=== PATIENT | female | born 1965 | race Two or more races ===

== ENCOUNTER 2019-03-15 19:09 | Emergency (ER) | payer SELFPAY ==
[2019-03-15 20:43] LABS: % BASOPHILS 1.1 % (0.0-2.0); % EOSINOPHILS 1.1 % (0.0-5.0); % LYMPHOCYTES 30.1 % (20.0-50.0); % MONOCYTES 5.3 % (2.0-10.0); % NEUTROPHILS 62.4 % (40.0-80.0); BASOPHILE ABSOLUTE 0.1 Th/cumm (0-0.2); EOSINOPHILE ABSOLUTE 0.1 Th/cmm (0.1-0.4); HEMATOCRIT 35.3 % (41.0-60); HEMOGLOBIN 11.7 gm/dL (12-16); LYMPHOCYTE ABSOLUTE 2.9 Th/cmm (1.5-3.0); MEAN CELL VOLUME 81.2 fl (81-100); MEAN CORPUSCULAR HEMOGLOBIN 26.8 pg (27.0-31.0); MEAN CORPUSCULAR HGB CONC 33.1 pg (28.0-36.0); MEAN PLATELET VOLUME 8.3 fl; MONOCYTE ABSOLUTE 0.5 Th/cmm (0.3-1.0); NEUTROPHILE ABSOLUTE 6.2 Th/cmm (1.8-8.0); PLATELET COUNT 362 Th/cmm (150-400); RED BLOOD COUNT 4.35 Mil/cmm (3.80-5.10); WHITE BLOOD COUNT 9.8 Th/cmm (4.8-10.8)
[2019-03-15 21:16] LABS: ALB/GLOB RATIO 1.1 (1.0-1.8); ALBUMIN 3.8 gm/dL (3.7-5.3); ALKALINE PHOSPHATASE 106 U/L (34-104); ANION GAP 12.5 (7.0-16.0); BILIRUBIN,TOTAL 0.3 mg/dL (0.3-1.0); BUN - UREA NITROGEN 9 mg/dL (7-25); CARBON DIOXIDE 24.1 mEq/L (21.0-31.0); CHLORIDE 104 mEq/L (98-107); CREATININE - SERUM 0.7 mg/dL (0.6-1.2); GFR AFRICAN-AMERICAN > 60.0 ml/min (>90); GFR NON AFRICAN-AMERICAN > 60.0 ml/min; GLUCOSE 112 mg/dL (70-105); POTASSIUM SERUM 3.6 mEq/L (3.5-5.1); SGOT 12 U/L (13-39); SGPT/ALT 23 U/L (7-52); SODIUM SERUM 137 mEq/L (136-145); TOTAL PROTEIN,SERUM 7.4 gm/dL (6.0-8.3)
[2019-03-15 21:51] LABS: URINE SOURCE CLEAN C
[2019-03-15 21:53] LABS: URINE BILIRUBIN NEGATIVE (NEGATIVE); URINE BLOOD NEGATIVE (NEGATIVE); URINE GLUCOSE (UA) NEGATIVE (NEGATIVE); URINE KETONE NEGATIVE (NEGATIVE); URINE LEUKOCYTE ESTERASE TRACE (NEGATIVE); URINE MICROSCOPIC INDICATED? YES; URINE NITRATE NEGATIVE (NEGATIVE); URINE PH 5.5 (4.6 - 8.0); URINE PROTEIN NEGATIVE (NEGATIVE); URINE UROBILINOGEN 0.2 E.U./dL (0.2 - 1.0)
[2019-03-15 22:09] LABS: URINE COLOR STRAW
[2019-03-15 22:10] LABS: URINE CLARITY SLIGHT HAZY (CLEAR)
[2019-03-15 22:13] LABS: URINE EPITHELIAL CELLS MODERATE /lpf (FEW); URINE RBC NONE SEEN /hpf (0-5); URINE WBC 0-2 /hpf (0-5)
[2019-03-15 22:14] LABS: URINE BACTERIA OCCASIONAL /hpf (NONE SEEN)
--- NOTE | 2019-03-16 12:25 | Diagnostic Imaging Report ---
Chest x-ray single view History: Pain Comparison: None The heart size is normal. No focal pulmonary parenchymal processes. No hilar or mediastinal abnormalities. Impression: No acute abnormalities
--- NOTE | 2019-03-16 12:25 | Diagnostic Imaging Report ---
EXAM: Left shoulder joint HISTORY: Pain COMPARISON: None FINDINGS: Multiple views of left shoulder joint reviewed. The study demonstrates no evidence of fracture or dislocation. There is no evidence of subluxation. The acromion clinically joint is intact. The head of right humerus is well within the glenoid fossa. IMPRESSION: Normal examination of the left shoulder joint.
--- NOTE | 2019-03-29 19:29 | ED Physician Chart ---
ED Chief Complaint/HPI - Patient Information Date Seen:: 03/15/19 Time Seen:: 20:00 Chief Complaint:: lt shoulder pain History of Present Illness:: 53 yr old female with chronic lt shoulder pain for one month no trauma no fever no numbness weakness or cp Allergies:: Allergies Allergy/AdvReac Type Severity Reaction Status Date / Time No Known Allergies Allergy Verified 03/15/19 21:01 ED Review of Systems - Review of Systems General/Constitutional: No fever, No chills, No weight loss, No weakness, No diaphoresis, No edema, No loss of appetite Skin: No skin lesions, No rash, No bruising Head: No headache, No light-headedness Eyes: No loss of vision, No pain, No diplopia ENT: No earache, No nasal drainage, No sore throat, No tinnitus Neck: No neck pain, No swelling, No thyromegaly, No stiffness, No mass noted Cardio Vascular: No chest pain, No palpitations, No PND, No orthopnea, No edema Pulmonary: No SOB, No cough, No sputum, No wheezing GI: No nausea, No vomiting, No diarrhea, No pain, No melena, No hematochezia, No constipation, No hematemesis G/U: No dysuria, No frequency, No hematuria Musculoskeletal: Bone or joint pain Endocrine: No polyuria, No polydipsia Psychiatric: No prior psych history, No depression, No anxiety, No suicidal ideation Hematopoietic: No bruising, No lymphadenopathy Allergic/Immuno: No urticaria, No angioedema Neurological: No syncope, No focal symptoms, No weakness, No paresthesia, No headache, No seizure, No dizziness, No confusion, No vertigo ED Past Medical History - Past Medical History Past Medical History: HTN, DM, Dyslipidemia, Other (codey) Surgical History: Appendectomy, Cholecystectomy, Family Medical History - Family Member Mother History Unknown: Yes ED Physical Exam - Physical Examination Other Extremities comments:: lt shoulder mild ant shoulder tenderness with painful rom ED Labs/Radiology/EKG Results - Lab Results Results: Laboratory Tests 03/15/19 03/15/19 03/15/19 20:30 20:30 20:30 WBC 9.8 RBC 4.35 Hgb 11.7 L Hct 35.3 L MCV 81.2 MCH 26.8 L MCHC Differential 33.1 RDW 14.0 Plt Count 362 MPV 8.3 Neutrophils % 62.4 Lymphocytes % 30.1 Monocytes % 5.3 Eosinophils % 1.1 Basophils % 1.1 Sodium 137 Potassium 3.6 Chloride 104 Carbon Dioxide 24.1 Anion Gap 12.5 BUN 9 Creatinine 0.7 Est GFR ( Amer) > 60.0 Est GFR (Non-Af Amer) > 60.0 BUN/Creatinine Ratio 12.9 Glucose 112 H Calcium 9.0 Total Bilirubin 0.3 AST 12 L ALT 23 Alkaline Phosphatase 106 H Creatine Kinase Troponin I Total Protein 7.4 Albumin 3.8 Globulin 3.6 Albumin/Globulin Ratio 1.1 Urine Source CLEAN C Urine Color STRAW Urine Clarity SLIGHT HAZY Urine pH 5.5 Ur Specific [place] >= 1.030 Urine Protein NEGATIVE Urine Glucose (UA) NEGATIVE Urine Ketones NEGATIVE Urine Blood NEGATIVE Urine Nitrate NEGATIVE Urine Bilirubin NEGATIVE Urine Urobilinogen 0.2 Ur Leukocyte Esterase TRACE H Urine RBC NONE SEEN Urine WBC 0-2 Ur Epithelial Cells MODERATE Urine Bacteria OCCASIONAL 03/15/19 03/15/19 20:30 20:30 WBC RBC Hgb Hct MCV MCH MCHC Differential RDW Plt Count MPV Neutrophils % Lymphocytes % Monocytes % Eosinophils % Basophils % Sodium Potassium Chloride Carbon Dioxide Anion Gap BUN Creatinine Est GFR ( Amer) Est GFR (Non-Af Amer) BUN/Creatinine Ratio Glucose Calcium Total Bilirubin AST ALT Alkaline Phosphatase Creatine Kinase 51 Troponin I < 0.01 L Total Protein Albumin Globulin Albumin/Globulin Ratio Urine Source Urine Color Urine Clarity Urine pH Ur Specific [place] Urine Protein Urine Glucose (UA) Urine Ketones Urine Blood Urine Nitrate Urine Bilirubin Urine Urobilinogen Ur Leukocyte Esterase Urine RBC Urine WBC Ur Epithelial Cells Urine Bacteria ED Assessment - Assessment General Assessment: lt shoulder sprain ED Septic Shock - . Is Septic Shock (SBP<90, OR Lactate>4 mmol\L) present?: No ED Reassessment (Disposition) - Reassessment Reassessment:: lt shoulder sprain - Diagnosis Diagnosis:: lt shoulder pain - Patient Disposition Discharge/Transfer:: Home Condition at Disposition:: Stable
== END 2019-03-15 23:00 | disposition home or self-care (01) ==
LOC: ER 19:09
DX: S43.402A Unspecified sprain of left shoulder joint, initial encounter (principal); I10 Essential (primary) hypertension; E11.9 Type 2 diabetes mellitus without complications; E78.5 Hyperlipidemia, unspecified; Z90.49 Acquired absence of other specified parts of digestive tract; Z98.890 Other specified postprocedural states; X58.XXXA Exposure to other specified factors, initial encounter; Y93.89 Activity, other specified; Y92.89 Other specified places as the place of occurrence of the external cause; Y99.8 Other external cause status
CPT/HCPCS: 99284; 96372; 93005; 71045; 73030; 84484; 36415; 85025; 81001; 82550; 80053; 87040 ×2; J1885